=== PATIENT | female | born 1935 | race Caucasian/White ===

== ENCOUNTER 2018-11-08 06:28 | Inpatient (IN) | payer OTHER ==
[~2018-11-08] VITALS: Ht 167.6 cm; Wt 83.4 kg
[2018-11-08 07:50] LABS: Basophils # (auto) 0.1 uL; Basophils % (auto) 0.7 % (0.0-2.0); Eosinophils # (auto) 0.4 uL; Eosinophils % (auto) 3.8 % (0.0-7.0); Hematocrit 44.7 % (36.0-46.0); Hemoglobin 15.2 g/dL (12.2-16.2); Lymphocytes # (auto) 1.8 uL; Lymphocytes % (auto) 15.6 % (10.0-50.0); Mean Corpuscular Hemoglobin 29.9 pg (28.0-32.0); Mean Corpuscular Volume 87.9 fL (80.0-100.0); Monocytes # (auto) 0.8 uL; Monocytes % (auto) 7.4 % (0.0-12.0); Neutrophils # (auto) 8.3 uL; Neutrophils % (auto) 72.5 % (37.0-80.0); Nucleated Red Blood Cells % 0.2 %; Platelet Count (auto) 188 10^3/uL (140-450); Red Blood Cells 5.08 10^6/uL (4.0-5.20); Red Cell Distribution Width 13.4 % (11.8-14.3); White Blood Cell 11.4 10^3/uL (4.4-10.8)
[2018-11-08 07:56] LABS: Albumin 3.6 g/dL (3.4-5.0); Calcium 8.8 mg/dL (8.5-10.1); Magnesium 2.2 mg/dL (1.6-2.6)
[2018-11-08] MEDS ORDERED: ONDANSETRON HCL 4 MG/2 ML VIAL ONE (07:58)
[2018-11-08 08:02] LABS: BUN/Creatinine Ratio 12.3; Bilirubin, Total 1.2 mg/dL (0.2-1.0); Total Protein 7.2 g/dL (6.4-8.2)
[2018-11-08 08:07] LABS: Potassium 2.7 mmol/L (3.5-5.1)
[2018-11-08 08:08] LABS: INR 1.01 (0.9-1.15); Partial Thromboplastin Time 27.9 sec (23.78-33.04); Prothrombin Time 10.8 sec (9.27-12.13)
[2018-11-08] MEDS ORDERED: ONDANSETRON HCL 4 MG/2 ML VIAL IV ONE (08:15)
[2018-11-08] MEDS ORDERED: POTASSIUM CHL 10% (20 MEQ/15ML) 15ml ORAL SOLN PO ONE (08:30)
[2018-11-08] MEDS ORDERED: ACETAMINOPHEN 325 MG TAB PO PRN (09:45)
[2018-11-08] MEDS ORDERED: NITROGLYCERIN 0.4 MG SL TAB SL PRN (09:45)
[2018-11-08] MEDS ORDERED: MORPHINE SULF INJ 2 MG/ML SYRINGE 1ML IV PRN (09:45)
[2018-11-08] MEDS ORDERED: FAMOTIDINE 20 MG TAB PO SCH (10:00)
[2018-11-08] MEDS: FAMOTIDINE 20 MG TAB PO SCH (10:00)
[2018-11-08] MEDS: ENOXAPARIN SOD 40 MG/0.4 ML SYRINGE SC SCH (10:29)
[2018-11-08] MEDS ORDERED: POTASSIUM CHL 20MEQ/100ML 100 ML IV ONE (10:36)
[2018-11-08] MEDS: POTASSIUM CHL 20MEQ/100ML 100 ML IV SCH ×2 (10:45→12:32)
[2018-11-08] MEDS: MORPHINE SULF INJ 2 MG/ML SYRINGE 1ML IV PRN (17:06)
[2018-11-08 17:51] LABS: Urine Bacteria NONE SEEN /hpf (None Seen); Urine Blood Negative /uL (Negative); Urine Specific Gravity 1.017 (1.001-1.035); Urine WBC 1 /hpf (0 - 5)
[2018-11-09] MEDS ORDERED: hydrALAZINE HCL 20 MG/ML VL IV ONE (00:15)
[2018-11-09] MEDS: ONDANSETRON HCL 4 MG/2 ML VIAL IV PRN (02:45)
[2018-11-09] MEDS: MORPHINE SULF INJ 2 MG/ML SYRINGE 1ML IV PRN ×2 (02:45→23:25)
[2018-11-09 07:22] LABS: Basophils # (auto) 0.1 uL; Basophils % (auto) 0.8 % (0.0-2.0); Eosinophils # (auto) 0.3 uL; Eosinophils % (auto) 2.4 % (0.0-7.0); Hematocrit 41.3 % (36.0-46.0); Hemoglobin 14.2 g/dL (12.2-16.2); Lymphocytes # (auto) 1.5 uL; Lymphocytes % (auto) 13.8 % (10.0-50.0); Mean Corpuscular Hemoglobin 30.1 pg (28.0-32.0); Mean Corpuscular Hgb Conc. 34.4 g/dL (32.0-36.0); Mean Corpuscular Volume 87.3 fL (80.0-100.0); Monocytes # (auto) 0.8 uL; Monocytes % (auto) 7.1 % (0.0-12.0); Neutrophils # (auto) 8.1 uL; Neutrophils % (auto) 75.9 % (37.0-80.0); Nucleated Red Blood Cells % 0.2 %; Platelet Count (auto) 178 10^3/uL (140-450); Red Blood Cells 4.73 10^6/uL (4.0-5.20); Red Cell Distribution Width 13.4 % (11.8-14.3); White Blood Cell 10.7 10^3/uL (4.4-10.8)
[2018-11-09 07:40] LABS: Calcium 8.4 mg/dL (8.5-10.1); Magnesium 2.1 mg/dL (1.6-2.6); Phosphorus 3.4 mg/dL (2.5-4.90); Potassium 3.2 mmol/L (3.5-5.1)
[2018-11-09 09:12] VITALS: BP 123/51
[2018-11-09] MEDS: ENOXAPARIN SOD 40 MG/0.4 ML SYRINGE SC SCH (10:17)
[2018-11-09] MEDS: FAMOTIDINE 20 MG TAB PO SCH (10:17)
[2018-11-09 12:00] VITALS: BP 131/62
[2018-11-09] MEDS ORDERED: POTASSIUM CHL 20 Meq TABLET PO ONE (13:00)
[2018-11-09] MEDS ORDERED: SENNA 8.6 MG TAB PO PRN (13:00)
[2018-11-09] MEDS: POTASSIUM CHL 20MEQ/100ML 100 ML IV SCH ×2 (13:03→14:17)
[2018-11-09 16:01] VITALS: BP 119/70
[2018-11-09 19:43] VITALS: BP 108/70
[2018-11-09] MEDS: SENNA 8.6 MG TAB PO SCH (21:39)
[2018-11-09] MEDS: DOCUSATE SOD 100 MG CAP PO SCH (21:39)
[2018-11-10] VITALS: BP 108/77
[2018-11-10 04:00] VITALS: BP 156/64
[2018-11-10 04:50] LABS: Basophils # (auto) 0.1 uL; Basophils % (auto) 0.9 % (0.0-2.0); Eosinophils # (auto) 0.4 uL; Eosinophils % (auto) 3.8 % (0.0-7.0); Hematocrit 40.5 % (36.0-46.0); Hemoglobin 14.1 g/dL (12.2-16.2); Lymphocytes % (auto) 19.4 % (10.0-50.0); Mean Corpuscular Hemoglobin 30.6 pg (28.0-32.0); Mean Corpuscular Hgb Conc. 34.9 g/dL (32.0-36.0); Mean Corpuscular Volume 87.5 fL (80.0-100.0); Monocytes # (auto) 0.7 uL; Monocytes % (auto) 7.3 % (0.0-12.0); Neutrophils % (auto) 68.6 % (37.0-80.0); Nucleated Red Blood Cells % 0.1 %; Platelet Count (auto) 177 10^3/uL (140-450); Red Blood Cells 4.62 10^6/uL (4.0-5.20); Red Cell Distribution Width 13.3 % (11.8-14.3); White Blood Cell 10.2 10^3/uL (4.4-10.8)
[2018-11-10 05:09] LABS: BUN/Creatinine Ratio 14.1; Calcium 8.5 mg/dL (8.5-10.1); Magnesium 2.3 mg/dL (1.6-2.6); Potassium 4.1 mmol/L (3.5-5.1)
[2018-11-10 07:50] VITALS: BP 131/75
[2018-11-10] MEDS: DOCUSATE SOD 100 MG CAP PO SCH ×2 (10:10→21:49)
[2018-11-10] MEDS: FAMOTIDINE 20 MG TAB PO SCH (10:10)
[2018-11-10] MEDS: ENOXAPARIN SOD 40 MG/0.4 ML SYRINGE SC SCH (10:10)
[2018-11-10 11:45] VITALS: BP 117/74
[2018-11-10] MEDS: POLYETHYLENE GLYCOL 17 GM PWDR PO SCH (12:18)
[2018-11-10] MEDS ORDERED: APIX5TAB OR (14:26)
[2018-11-10] MEDS ORDERED: FURO40TA PO (14:26)
[2018-11-10] MEDS ORDERED: TRIATAB3 PO (14:26)
[2018-11-10] MEDS ORDERED: METO25TA62 PO (14:26)
[2018-11-10] MEDS ORDERED: DIGO0.2520 PO (14:26)
[2018-11-10] MEDS ORDERED: POTA10TA51 PO (14:26)
[2018-11-10] MEDS ORDERED: HYDR25TA4 PO (14:26)
[2018-11-10] MEDS ORDERED: LISI2.5T47 PO (14:26)
[2018-11-10 15:52] VITALS: BP 141/25
[2018-11-10 19:50] VITALS: BP 136/78
[2018-11-10] MEDS: SENNA 8.6 MG TAB PO SCH (21:49)
[2018-11-10] MEDS: MORPHINE SULF INJ 2 MG/ML SYRINGE 1ML IV PRN (23:59)
[2018-11-11] VITALS: BP 142/57
[2018-11-11 04:00] VITALS: BP 130/74
[2018-11-11 05:57] LABS: Basophils # (auto) 0.1 uL; Basophils % (auto) 0.7 % (0.0-2.0); Eosinophils # (auto) 0.6 uL; Eosinophils % (auto) 6.6 % (0.0-7.0); Hematocrit 39.8 % (36.0-46.0); Hemoglobin 13.8 g/dL (12.2-16.2); Lymphocytes # (auto) 1.5 uL; Lymphocytes % (auto) 18.4 % (10.0-50.0); Mean Corpuscular Hgb Conc. 34.5 g/dL (32.0-36.0); Mean Corpuscular Volume 86.9 fL (80.0-100.0); Monocytes # (auto) 0.6 uL; Monocytes % (auto) 7.6 % (0.0-12.0); Neutrophils # (auto) 5.6 uL; Neutrophils % (auto) 66.7 % (37.0-80.0); Platelet Count (auto) 171 10^3/uL (140-450); Red Blood Cells 4.58 10^6/uL (4.0-5.20); Red Cell Distribution Width 13.5 % (11.8-14.3); White Blood Cell 8.4 10^3/uL (4.4-10.8)
[2018-11-11 06:11] LABS: Potassium 3.4 mmol/L (3.5-5.1)
[2018-11-11 06:15] LABS: Calcium 8.4 mg/dL (8.5-10.1); Magnesium 2.3 mg/dL (1.6-2.6)
[2018-11-11 06:18] LABS: BUN/Creatinine Ratio 16.5
[2018-11-11 07:45] VITALS: BP 106/89
[2018-11-11] MEDS: POTASSIUM CHL 20MEQ/100ML 100 ML IV SCH ×2 (09:45→10:21)
[2018-11-11] MEDS: POLYETHYLENE GLYCOL 17 GM PWDR PO SCH (10:01)
[2018-11-11] MEDS: DOCUSATE SOD 100 MG CAP PO SCH ×2 (10:02→21:27)
[2018-11-11] MEDS: ENOXAPARIN SOD 40 MG/0.4 ML SYRINGE SC SCH (10:02)
[2018-11-11] MEDS: FAMOTIDINE 20 MG TAB PO SCH (10:02)
[2018-11-11] MEDS ORDERED: POTASSIUM CHL 20 Meq TABLET PO ONE (11:30)
[2018-11-11 11:45] VITALS: BP 149/62
[2018-11-11 15:50] VITALS: BP 148/78
[2018-11-11 19:54] VITALS: BP 140/58
[2018-11-11] MEDS: SENNA 8.6 MG TAB PO SCH (21:27)
[2018-11-12] VITALS (7 sets, daily range): BP systolic 120–158; BP diastolic 42–93
[2018-11-12] MEDS: MORPHINE SULF INJ 2 MG/ML SYRINGE 1ML IV PRN ×2 (03:23→15:18)
[2018-11-12 06:21] LABS: BUN/Creatinine Ratio 17.3; Calcium 8.5 mg/dL (8.5-10.1)
[2018-11-12] MEDS: ENOXAPARIN SOD 40 MG/0.4 ML SYRINGE SC SCH (08:38)
[2018-11-12] MEDS ORDERED: IODIXANOL 320MG/ML 100ML BTL IV ONE (09:57)
[2018-11-12] MEDS ORDERED: fentaNYL CITRATE 100 MCG/2 ML VL ONE (09:57)
[2018-11-12] MEDS ORDERED: ANGIOMAX 250 MG VIAL IV ONE (09:57)
[2018-11-12] MEDS ORDERED: MIDAZOLAM HCL 1MG/1ML-2 ML VIAL ONE (09:57)
[2018-11-12] MEDS ORDERED: SODIUM CHL 0.9% 0 ML ONE (09:57)
[2018-11-12] MEDS ORDERED: VERAPAMIL 2.5MG/ML INJ 2ML VIAL IV ONE (09:58)
[2018-11-12] MEDS ORDERED: LIDOCAINE 2%HCL (LOCAL ANESTH.) INJ 20ML MDV ONE (10:12)
[2018-11-12] MEDS ORDERED: HEPARIN SODIUM (PORCINE) 5000 UNITS/ML 1ML VIAL ONE (10:51)
[2018-11-12] MEDS: FAMOTIDINE 20 MG TAB PO SCH (11:33)
[2018-11-12] MEDS: POLYETHYLENE GLYCOL 17 GM PWDR PO SCH (11:33)
[2018-11-12] MEDS: DOCUSATE SOD 100 MG CAP PO SCH ×2 (11:33→21:57)
[2018-11-12] MEDS: SENNA 8.6 MG TAB PO SCH (21:57)
[2018-11-13] MEDS: MORPHINE SULF INJ 2 MG/ML SYRINGE 1ML IV PRN ×2 (04:20→12:56)
[2018-11-13 05:20] VITALS: BP 117/64
[2018-11-13 06:52] LABS: Potassium 3.8 mmol/L (3.5-5.1)
[2018-11-13 06:57] LABS: Calcium 8.4 mg/dL (8.5-10.1); Magnesium 2.2 mg/dL (1.6-2.6)
[2018-11-13 09:00] VITALS: BP 135/71
[2018-11-13] MEDS: ENOXAPARIN SOD 40 MG/0.4 ML SYRINGE SC SCH (10:41)
[2018-11-13] MEDS: FAMOTIDINE 20 MG TAB PO SCH (10:41)
[2018-11-13] MEDS: DOCUSATE SOD 100 MG CAP PO SCH ×2 (10:41→22:10)
[2018-11-13] MEDS: POLYETHYLENE GLYCOL 17 GM PWDR PO SCH (10:44)
[2018-11-13] MEDS: ONDANSETRON HCL 4 MG/2 ML VIAL IV PRN (12:56)
[2018-11-13 13:00] VITALS: BP 135/50
[2018-11-13 16:43] VITALS: BP 104/72
[2018-11-13] MEDS ORDERED: LACTULOSE 20Gm/30ML SOLN PO PRN (17:30)
[2018-11-13 22:00] VITALS: BP 137/62
[2018-11-13] MEDS: SENNA 8.6 MG TAB PO SCH (22:10)
[2018-11-13] MEDS: APIXABAN 5 MG TAB PO SCH (22:10)
[2018-11-14 05:09] VITALS: BP 134/56
[2018-11-14] MEDS: MORPHINE SULF INJ 2 MG/ML SYRINGE 1ML IV PRN (06:30)
[2018-11-14 06:31] LABS: Potassium 3.7 mmol/L (3.5-5.1)
[2018-11-14 06:41] LABS: BUN/Creatinine Ratio 15.8; Calcium 8.6 mg/dL (8.5-10.1); Magnesium 2.4 mg/dL (1.6-2.6)
[2018-11-14 06:53] LABS: Basophils # (auto) 0.1 uL; Basophils % (auto) 0.8 % (0.0-2.0); Eosinophils # (auto) 0.4 uL; Eosinophils % (auto) 5.3 % (0.0-7.0); Hematocrit 40.9 % (36.0-46.0); Hemoglobin 13.9 g/dL (12.2-16.2); Lymphocytes # (auto) 1.3 uL; Lymphocytes % (auto) 16.4 % (10.0-50.0); Mean Corpuscular Volume 88.1 fL (80.0-100.0); Monocytes # (auto) 0.6 uL; Neutrophils # (auto) 5.6 uL; Neutrophils % (auto) 70.5 % (37.0-80.0); Nucleated Red Blood Cells % 0.1 %; Platelet Count (auto) 172 10^3/uL (140-450); Red Blood Cells 4.64 10^6/uL (4.0-5.20); Red Cell Distribution Width 13.1 % (11.8-14.3)
[2018-11-14 09:00] VITALS: BP 161/72
[2018-11-14] MEDS: DOCUSATE SOD 100 MG CAP PO SCH (09:51)
[2018-11-14] MEDS: ENOXAPARIN SOD 40 MG/0.4 ML SYRINGE SC SCH (09:51)
[2018-11-14] MEDS: FAMOTIDINE 20 MG TAB PO SCH (09:51)
[2018-11-14] MEDS: APIXABAN 5 MG TAB PO SCH (09:51)
[2018-11-14] MEDS: POLYETHYLENE GLYCOL 17 GM PWDR PO SCH (09:51)
[2018-11-14 13:00] VITALS: BP 155/76
[2018-11-14 14:03] VITALS: BP 173/119
== END 2018-11-14 16:30 | disposition home health service (06) | DRG 286 ==
LOC: ER 06:28 → EDBD 06:28 → DOU 09:43 → TELE 16:28 → DOU IN ICU 11-09 08:12 → TELE-WESTW 11-12 21:01
PROVIDERS: ADMIT Internal Medicine; ATTEND Internal Medicine
PROC: B2111ZZ Fluoroscopy of Multiple Coronary Arteries using Low Osmolar Contrast (ICD-10-PCS; principal; 2018-11-12)
DX: R00.1 Bradycardia, unspecified (principal); I50.33 Acute on chronic diastolic (congestive) heart failure; J96.10 Chronic respiratory failure, unspecified whether with hypoxia or hypercapnia; R55 Syncope and collapse; I47.2 Ventricular tachycardia; T46.0X5A Adverse effect of cardiac-stimulant glycosides and drugs of similar action, initial encounter; J44.9 Chronic obstructive pulmonary disease, unspecified; I11.0 Hypertensive heart disease with heart failure; I48.2 Chronic atrial fibrillation; K59.00 Constipation, unspecified; I48.0 Paroxysmal atrial fibrillation; Z79.01 Long term (current) use of anticoagulants; Z99.81 Dependence on supplemental oxygen; Z87.891 Personal history of nicotine dependence; Z90.710 Acquired absence of both cervix and uterus; Z79.899 Other long term (current) drug therapy; Z90.49 Acquired absence of other specified parts of digestive tract; Z91.19 Patient's noncompliance with other medical treatment and regimen; Y92.89 Other specified places as the place of occurrence of the external cause
CPT/HCPCS: 36415; 70450; 71045; 73502; 80048; 80053; 80162; 81001; 83735; 84100; 84484; 85025; 85610; 85730; 86850; 86900; 86901; 87081; 93306; A6257; G0378; J2250; J2405; J3480; Q9967